=== PATIENT | male | born 1965 | race Caucasian/White ===

== ENCOUNTER 2022-08-22 12:11 | Emergency (ER) | payer OTHER ==
[2022-08-22] MEDS ORDERED: Ibuprofen 800 MG Tab PO ONE (14:05)
== END 2022-08-22 15:11 | disposition home or self-care (01) ==
LOC: JD.ED 12:11
DX: S06.9X9A Unspecified intracranial injury with loss of consciousness of unspecified duration, initial encounter (principal); S16.1XXA Strain of muscle, fascia and tendon at neck level, initial encounter; S46.912A Strain of unspecified muscle, fascia and tendon at shoulder and upper arm level, left arm, initial encounter; V49.40XA Driver injured in collision with unspecified motor vehicles in traffic accident, initial encounter; Y92.410 Unspecified street and highway as the place of occurrence of the external cause
CPT/HCPCS: 70450; 72100; 72125; 73030; 99284; A9270